=== PATIENT | male | born 1995 | race African-American/Black ===

== ENCOUNTER 2017-03-28 19:01 | Emergency (ER) | payer OTHER ==
--- NOTE | ~2017-03-28 | US113 ---
[facility] A Service of [facility] & [facility] RADIOLOGY TEXT RESULTS PATIENT: KISHOR FAUSTIN LOCATION: [facility] : [birth year] UNIT #: [id number] AGE: [address]: DREW HAGEN APRN SEX: M ORDER DR: [id number] [facility] [address] [place], [place] [address] [id number] MR#: [id number] Acc #: [id number] NAME: KISHOR FAUSTIN : 1995 SEX: M STUDY DATE/TIME: 03/28/2017 21:15 UNIT: [facility] ROOM: STUDY DESCRIPTION: US Scrotal Duplex Complete Attending Physician: Drew Hagen Aprn Ordering Physician: Drew Hagen Aprn Primary Care Physician: Primary Care Physician No MEDICAL IMAGING REPORT This report is preliminary unless electronic signature is present EXAM Scrotal ultrasound with Doppler HISTORY Testicular pain for 2 months. Low back pain. FINDINGS Ultrasound examination of the scrotum and testes was performed with caballero-scale and Doppler. There is no testicular mass or enlargement. Normal blood flow to both testes on color Doppler. Incidental 6 mm right epididymal head cyst. 3 mm left epididymal head cyst. No epididymal enlargement. IMPRESSION 1. Normal ultrasound examination of both testes. No testicular mass or enlargement and normal blood flow to both testes on color Doppler. 2. Incidental bilateral epididymal head cysts. Dictated by... Damion Sims M.D. THIS IS AN ELECTRONICALLY VERIFIED REPORT Damion Sims M.D. at 03/29/2017 1:00 PM DESTINY/logan TD: 03/29/2017 09:22 JOB #: [id number] MEDICAL IMAGING REPORT Page 1 of 1 COPY
[2017-03-28 20:23] LABS: URINE APPEARANCE CLOUDY; URINE BILIRUBIN NEG (NEG); URINE BLOOD NEG (NEG); URINE COLOR YELLOW; URINE GLUCOSE NEG (NEG); URINE KETONE NEG (NEG); URINE LEUKOCYTE ESTERASE NEG (NEG); URINE NITRATE NEG (NEG); URINE PH 8.5 (5-8); URINE PROTEIN NEG (NEG); URINE SPECIFIC GRAVITY 1.019 (1.003-1.035); URINE UROBILINOGEN 0.2 MG/DL (NEG)
[2017-03-28 20:31] LABS: CULTURE INDICATED? NO
[2017-03-31 11:58] LABS: CHLAMYDIA TRACH Not Detected (Not Detected); N GONOR Not Detected (Not Detected)
== END 2017-03-28 22:35 | disposition home or self-care (01) ==
LOC: CFTX 19:01 → CED 19:01 → CFTX 19:29
PROVIDERS: Nurse Practitioner Family
DX: N41.1 Chronic prostatitis (principal); N50.811 Right testicular pain; N50.812 Left testicular pain; M54.5 Low back pain
CPT/HCPCS: 81003; 87491; 87591; 93975; 99284

== ENCOUNTER 2017-05-21 12:56 | Emergency (ER) | payer OTHER ==
--- NOTE | ~2017-05-21 | CR181 ---
[facility] Service of [facility] & [facility] RADIOLOGY TEXT RESULTS PATIENT: KISHOR FAUSTIN LOCATION: [facility] : [birth year] UNIT #: [id number] AGE: [address]: Avril Mahajan APRN SEX: M ORDER DR: [id number] [facility] [address] [place], [place] [address] [id number] E MR#: [id number] Acc #: [id number] NAME: KISHOR FAUSTIN : 1995 SEX: M STUDY DATE/TIME: 05/21/2017 13:50 UNIT: [place] ROOM: STUDY DESCRIPTION: CR Lumbar Spine 2 or 3 Views Attending Physician: Avril Mahajan A.P.R.N. Ordering Physician: Ed Yimi Lui M.D. Primary Care Physician: No Primary Care Physician MEDICAL IMAGING REPORT This report is preliminary unless electronic signature is present EXAM Lumbar spine series, 05/21/2017, 1350 hours. CLINICAL HISTORY 21-year-old with a 3-month history of low back pain. No reported injury. COMPARISON None FINDINGS AP and lateral views of the lumbar spine and coned lateral view of the lumbosacral junction were performed. 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 The vertebral body heights are normal. 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 Limited views of the sacrum are normal. IMPRESSION There is no vertebral body height loss or malalignment. 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 There is sclerosis at this assimilation joint which is a potential source of pain. 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 Dictated by... Saima Ventura M.D. THIS IS AN ELECTRONICALLY VERIFIED REPORT Saima Ventura M.D. at 05/21/2017 5:18 PM [facility] & [facility] RADIOLOGY TEXT RESULTS PATIENT: KISHOR FAUSTIN LOCATION: [facility] : [birth year] UNIT #: [id number] AGE: [address]: Avril Mahajan APRN SEX: M ORDER DR: Tameka TD: 05/21/2017 16:52 JOB #: [id number] MEDICAL IMAGING REPORT Page 1 of 1 COPY
== END 2017-05-21 15:11 | disposition home or self-care (01) ==
LOC: CFTX 12:56 → CED 12:56 → CFTX 14:26
DX: M54.5 Low back pain (principal)
CPT/HCPCS: 72100; 99283